=== PATIENT | female | born 1990 ===

== ENCOUNTER 2018-02-01 12:51 | Emergency (ER) | payer MEDICAID, OTHER ==
[2018-02-01 12:52] VITALS: BMI 27.4
[2018-02-01 13:00] VITALS: O2SAT 100
--- NOTE | 2018-02-01 13:02 | ED PDOC ---
HPI: Abdomen Time Seen by Provider: 02/01/18 12:59 Chief Complaint (Nursing): Abdominal Pain Additional Complaint(s): 27-year-old female presents with right flank pain and right lower quadrant pain that started 2 days ago. Patient noticed blood in her urine today. She denies fever or chills. She has had nausea with no vomiting. No associated vaginal bleeding or vaginal discharge. Patient rates pain as an 8 out of 10. PMD: does not know name Past Medical History Reviewed: Historical Data, Nursing Documentation, Vital Signs - Medical History PMH: Anxiety, Asthma, Bipolar Disorder, Depression - Surgical History Surgical History: No Surg Hx - Family History Family History: States: No Known Family Hx - Living Arrangements Living Arrangements: With Family - Social History Current smoker - smoking cessation education provided: Yes (1 cigarette per day) Alcohol: None Drugs: Denies - Home Medications Home Medications: Ambulatory Orders Medication Instructions Recorded Quetiapine Fumarate [Seroquel] 50 mg PO HS #14 tab 10/15/17 QUEtiapine [SEROquel] 50 mg PO HS #14 tab 11/09/17 Ibuprofen [Motrin] 600 mg PO Q6 PRN #15 tab 02/01/18 Nitrofurantoin Macrocrystals 100 mg PO BID #14 cap 02/01/18 [Macrobid] - Allergies Allergies/Adverse Reactions: Allergies Allergy/AdvReac Type Severity Reaction Status Date / Time No Known Allergies Allergy Verified 02/01/18 12:56 Review of Systems ROS Statement: Except As Marked, All Systems Reviewed And Found Negative Constitutional: Negative for: Fever, Chills Gastrointestinal: Positive for: Nausea, Abdominal Pain. Negative for: Vomiting, Diarrhea Genitourinary Female: Positive for: Hematuria Musculoskeletal: Positive for: Back Pain Physical Exam - Reviewed Nursing Documentation Reviewed: Yes Vital Signs Reviewed: Yes - Physical Exam Appears: Positive for: Well, Non-toxic, No Acute Distress Skin: Positive for: Normal Color. Negative for: Rash Eye Exam: Positive for: Normal appearance Cardiovascular/Chest: Positive for: Regular Rate, Rhythm Respiratory: Positive for: Normal Breath Sounds Gastrointestinal/Abdominal: Positive for: Tenderness (Moderate tenderness right lower quadrant with guarding, no rebound or distention) Back: Positive for: R CVA Tenderness (Moderate) Extremity: Positive for: Normal ROM Neurologic/Psych: Positive for: Alert, Oriented - Laboratory Results Result Diagrams: 02/01/18 13:30 02/01/18 13:30 Urine POC: Negative Urine dip results: Positive for: Leukocyte Esterase (small), Blood (moderate). Negative for: Nitrate, Ketones, Glucose, Bilirubin, Protein - ECG O2 Sat by Pulse Oximetry: 100 Pulse Ox Interpretation: Normal - Other Rad CT abd and pelvis with IV contrast X-Ray: Read By Radiologist X-Ray Interpretation: see below Medical Decision Making Medical Decision Makin27 y/o female with abd and flank pain Plan: Urine dip Urine test CBC CMP UA and culture IVF IV zofran IV toradol CT abd and pelvis with IV contrast CT: IMPRESSION: No acute abdominal pelvic pathology. Right involuting corpus luteal follicle. UTI is noted, IV Rocephin was ordered but patient refused to stay for infusion of antibiotics. She prefers to go home with oral antibiotics. Patient given prescription for Macrobid and Motrin. Advised fluids, rest and PMD follow-up in 2-3 days. Disposition - Clinical Impression Clinical Impression: UTI (urinary tract infection) - Patient ED Disposition Is Patient to be Admitted: No Counseled Patient/Family Regarding: Studies Performed, Diagnosis, Need For Followup, Rx Given - Disposition Referrals: [facility] [Outside] Disposition: Routine/Home Disposition Time: 16:25 Condition: STABLE Additional Instructions: Take prescription meds as directed. Drink plenty of fluids. Follow-up with primary doctor or clinic in 2-3 days. Prescriptions: Ibuprofen [Motrin] 600 mg PO Q6 PRN #15 tab PRN Reason: Pain, Moderate (4-7) Nitrofurantoin Macrocrystals [Macrobid] 100 mg PO BID #14 cap Instructions: Urinary Tract Infection, Adult (DC) Forms: [facility] (Citizen Of [place]) Results - Lab Results Lab Results: 02/01/18 02/01/18 02/01/18 13:30 13:30 13:20 WBC 15.7 H RBC 4.49 Hgb 14.1 Hct 41.1 MCV 91.5 D MCH 31.3 H MCHC 34.3 RDW 15.1 H Plt Count 276 MPV 9.1 Neut % (Auto) 81.3 H Lymph % (Auto) 11.9 L [place] % (Auto) 4.3 Eos % (Auto) 1.5 Baso % (Auto) 1.0 Neut # (Auto) 12.8 H Lymph # (Auto) 1.9 [place] # (Auto) 0.7 Eos # (Auto) 0.2 Baso # (Auto) 0.1 Sodium 143 Potassium 4.8 Chloride 109 H Carbon Dioxide 25 Anion Gap 14 BUN 21 H Creatinine 0.9 Est GFR ( Amer) > 60 Est GFR (Non-Af Amer) > 60 Random Glucose 86 Calcium 9.6 Total Bilirubin 0.5 AST 26 ALT 17 Alkaline Phosphatase 84 Total Protein 8.3 H Albumin 4.2 Globulin 4.1 H Albumin/Globulin Ratio 1.0 Urine Color Yellow Urine Clarity Turbid Urine pH 6.0 Ur Specific [place] 1.024 Urine Protein 100 Urine Glucose (UA) Neg Urine Ketones Negative Urine Blood Moderate Urine Nitrate Negative Urine Bilirubin Negative Urine Urobilinogen 0.2-1.0 Ur Leukocyte Esterase Large Urine RBC (Auto) 98 H Urine Microscopic WBC 1076 H Ur Squamous Epith Cells 20 H Urine Yeast (Budding) Few H
[2018-02-01] MEDS ORDERED: Sodium Chloride 0.9% 1,000 ML IV STA (13:14)
[2018-02-01 13:44] LABS: BASO # 0.1 K/uL (0.0-0.2); EOS # 0.2 K/uL (0.0-0.7); EOS % 1.5 % (0.0-4.0); HEMOGLOBIN 14.1 g/dL (12.0-16.0); LYMPH # 1.9 K/uL (1.0-4.3); LYMPH % 11.9 % (20.0-40.0); MEAN CELL VOLUME 91.5 fl (81.0-99.0); MEAN CORPUSCULAR HEMOGLOBIN 31.3 pg (27.0-31.0); MEAN CORPUSCULAR HGB CONC 34.3 g/dL (33.0-37.0); MEAN PLATELET VOLUME 9.1 fl (7.2-11.7); MONO # 0.7 K/uL (0.0-0.8); MONO % 4.3 % (0.0-10.0); NEUT # 12.8 K/uL (1.8-7.0); NEUT % 81.3 % (50.0-75.0); NRBC % 0.1 % (0.0-0.0); RBC 4.49 Mil/uL (3.80-5.20); RED CELL DISTRIBUTION WIDTH 15.1 % (11.5-14.5); WHITE BLOOD COUNT 15.7 K/uL (4.8-10.8)
[2018-02-01 14:02] LABS: ALBUMIN 4.2 g/dL (3.5-5.0); ALT/SGPT 17 U/L (9-52); AST/SGOT 26 U/L (14-36); BLOOD UREA NITROGEN 21 mg/dl (7-17); CALCIUM 9.6 mg/dL (8.4-10.2); GFR NON-AFRICAN AMERICAN > 60
[2018-02-01 14:03] LABS: SQUAMOUS EPITHIAL 20 /hpf (0-5); URINE BILIRUBIN NEGATIVE (NEGATIVE); URINE BLOOD MODERATE (NEGATIVE); URINE CLARITY TURBID (Clear); URINE COLOR YELLOW (YELLOW); URINE GLUCOSE (UA) NEG (Normal); URINE LEUKOCYTE ESTERASE LARGE Leu/uL (Negative); URINE PROTEIN 100 mg/dL (NEGATIVE); URINE UROBILINOGEN 0.2-1.0 mg/dL (0.2-1.0)
[2018-02-01] MEDS ORDERED: Sodium Chloride 0.9% 50 ML IV ONE (15:23)
[2018-02-01] MEDS ORDERED: Iohexol 300 100 ML IJ ONE (15:23)
--- NOTE | 2018-02-01 16:10 | CT ---
Date of service: 02/01/2018 PROCEDURE: CT Abdomen and Pelvis with contrast HISTORY: right flank pain, rlq pain COMPARISON: None. TECHNIQUE: Contrast dose: 95 mL Omnipaque 300. Radiation dose: Total exam DLP = 786.95 mGy-cm. This CT exam was performed using one or more of the following dose reduction techniques: Automated exposure control, adjustment of the mA and/or kV according to patient size, and/or use of iterative reconstruction technique. FINDINGS: LOWER THORAX: Unremarkable. LIVER: Mild hepatic steatosis. 1.0 cm posterior right hepatic lobe hypodensity, too small to characterize (series 3, image 40). No ductal dilatation. GALLBLADDER AND BILE DUCTS: Unremarkable. PANCREAS: Unremarkable. No gross lesion or ductal dilatation. SPLEEN: Unremarkable. ADRENALS: Unremarkable. No mass. KIDNEYS AND URETERS: Unremarkable. No hydronephrosis. No solid mass. VASCULATURE: Unremarkable. No aortic aneurysm. No aortic atherosclerotic calcification or mural plaque present. BOWEL: Unremarkable. No obstruction. No gross mural thickening. APPENDIX: Normal appendix. PERITONEUM: Unremarkable. No free fluid. No free air. LYMPH NODES: Unremarkable. No enlarged lymph nodes. BLADDER: Unremarkable. REPRODUCTIVE: Right involuting corpus luteal follicle. BONES: No acute fracture. OTHER FINDINGS: None. IMPRESSION: No acute abdominal pelvic pathology. Right involuting corpus luteal follicle.
[2018-02-01 16:37] VITALS: BP 115/85; PULSE 97; RESP 16; TEMP 98.2
== END 2018-02-01 16:30 | disposition home or self-care (01) ==
LOC: H.ER 12:51
DX: N39.0 Urinary tract infection, site not specified (principal); F17.210 Nicotine dependence, cigarettes, uncomplicated; J45.909 Unspecified asthma, uncomplicated; Z86.59 Personal history of other mental and behavioral disorders
CPT/HCPCS: 74177; 80053; 81003; 81025; 85025; 87086; 87181; 96374; 96375; 99285; J1885; J2405; J7030; Q9967